=== PATIENT | male | born 1970 | race African-American/Black ===

== ENCOUNTER 2017-07-27 10:13 | Emergency (ER) | payer OTHER ==
[2017-07-27 10:32] VITALS: BMI 25.8
--- NOTE | 2017-07-27 10:57 | PDOC ---
History of Present Illness - General History Source: Patient Exam Limitations: No Limitations - History of Present Illness Initial Comments: 07/27/17 11:53 The patient is a 46 year old male with no significant PMH who presents to the emergency department with chest pain beginning approximately 2-3 weeks ago which acutely worsened yesterday. The patient describes his chest pain as a sharp sensation localized in his left side which has been intermittent over the past 2 weeks but became worse last night.He reports intermittent shooting body aches in the past but notes his chest pain yesterday was worse than those pains. He reports only minimal chest pain at presentation. The patient also notes dyspnea with minimal exertion recently with associated fatigue, such as when going up a small flight of stairs. He denies any recent travel. He denies any history of blood clots. The patient denies headache and dizziness. Denies fever, chills, nausea, vomit, diarrhea and constipation. Denies dysuria, frequency, urgency and hematuria. Allergies: Adhesive, Latex. Past surgical history: Laparoscopic benign tumor removal. Social history: Occasional alcohol use. No reported cigarette or drug use. PCP: Dr. 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 [id number]/ HERNIA RIGHT GROIN) Appendectomy: No Cardiac Surgery: No Cholecystectomy: No Lung Surgery: No Neurologic Surgery: No Orthopedic Surgery: Yes (RIGHT KNEE ARTHROSCOPY 1999) - Immunization History Td Vaccination: Yes Immunization Up to Date: No - Suicide/Smoking/Psychosocial Hx Smoking Status: No Smoking History: Never smoked Have you smoked in the past 12 months: No Number of Cigarettes Smoked Daily: 0 Information on smoking cessation initiated: No Hx Alcohol Use: Yes (Occasionally) Drug/Substance Use Hx: No Substance Use Type: Alcohol Hx Substance Use Treatment: No <Doris Garrido - Last Filed: 07/30/17 08:07> - Past Medical History Allergies/Adverse Reactions: Allergies Allergy/AdvReac Type Severity Reaction Status Date / Time adhesive Allergy Severe Rash Verified 07/27/17 10:23 latex Allergy Severe Rash Verified 07/27/17 10:23 Review of Systems - Review of Systems Able to Perform ROS?: Yes Comments:: 07/27/17 11:53 GENERAL/CONSTITUTIONAL: (+) Intermittent body aches. No fever or chills. No weakness. HEAD, EYES, EARS, NOSE AND THROAT: No change in vision. No ear pain or discharge. No sore throat. CARDIOVASCULAR: (+) Chest pain. (+) Dyspnea with exertion. RESPIRATORY: No cough, wheezing, or hemoptysis. GASTROINTESTINAL: No nausea, vomiting, diarrhea or constipation. GENITOURINARY: No dysuria, frequency, or change in urination. MUSCULOSKELETAL: No joint or muscle swelling or pain. No neck or back pain. SKIN: No rash NEUROLOGIC: No headache, vertigo, loss of consciousness, or change in strength/ sensation. ENDOCRINE: No increased thirst. No abnormal weight change. HEMATOLOGIC/LYMPHATIC: No anemia, easy bleeding, or history of blood clots. ALLERGIC/IMMUNOLOGIC: No hives or skin allergy. <Anibal Hansen - Last Filed: 07/27/17 11:53> *Physical Exam - Vital Signs Last Vital Signs Temp Pulse Resp BP Pulse Ox 98.4 F 71 17 145/84 98 07/27/17 10:24 07/27/17 10:24 07/27/17 10:24 07/27/17 10:24 07/27/17 10:24 <Anibal Hansen - Last Filed: 07/27/17 11:53> - Vital Signs Last Vital Signs Temp Pulse Resp BP Pulse Ox 98.4 F 71 17 145/84 98 07/27/17 10:24 07/27/17 10:24 07/27/17 10:24 07/27/17 10:24 07/27/17 10:24 - Physical Exam Comments: GENERAL: Awake, alert, and fully oriented, in no acute distress HEAD: No signs of trauma EYES: PERRLA, EOMI, sclera anicteric, conjunctiva clear ENT: Auricles normal inspection, hearing grossly normal, nares patent, oropharynx clear without exudates. Moist mucosa NECK: Normal ROM, supple, no lymphadenopathy, JVD, or masses LUNGS: Breath sounds equal, clear to auscultation bilaterally. No wheezes, and no crackles HEART: Regular rate and rhythm, normal S1 and S2, no murmurs, rubs or gallops ABDOMEN: Soft, nontender, normoactive bowel sounds. No guarding, no rebound. No masses EXTREMITIES: Normal range of motion, no edema. No clubbing or cyanosis. No cords, erythema, or tenderness NEUROLOGICAL: Cranial nerves II through XII grossly intact. Normal speech, normal gait SKIN: Warm, Dry, normal turgor, no rashes or lesions noted. <Doris Garrido - Last Filed: 07/30/17 08:07> Heart Score/ECG Review - History History: Slightly suspicious - Electrocardiogram EKG: Normal - Age Age: 45-65 - Risk Factors Risk Factors Heart Score: Yes Smoking History Based on the list above the patient has:: 1-2 risk factors - Troponin Troponin: </= normal limit - Score Heart Score - Total: 2 <Doris Garrido - Last Filed: 07/30/17 08:07> ED Treatment Course - LABORATORY CBC & Chemistry Diagram: 07/27/17 11:00 07/27/17 11:00 - ADDITIONAL ORDERS Additional order review: Laboratory Results 07/27/17 11:00 PT with INR 11.70 INR 1.04 07/27/17 11:00 RBC 4.91 MCV 80.9 MCHC 34.7 RDW 14.7 MPV 7.5 Neutrophils % 41.6 L Lymphocytes % 45.2 H Monocytes % 11.9 H Eosinophils % 0.7 Basophils % 0.6 <Anibal Hansen - Last Filed: 07/27/17 11:53> - LABORATORY CBC & Chemistry Diagram: 07/27/17 11:00 07/27/17 11:00 <Doris Garrido - Last Filed: 07/30/17 08:07> Medical Decision Making - Medical Decision Making Results discussed with patient. Also explained that this does not rule out cardiac disease completely, and that further testing may be recommended. He states that he has to fly to [place] tomorrow for a , will leave "no matter what". He declined to stay in ED while I contacted Dr. Saavedra to discuss results, stating he needed to leave. Echo wnl, EKG wnl, and labs wnl. CTA negative for PE. Encouraged patient to f/u closely. <Doris Garrido - Last Filed: 07/30/17 08:07> *DC/Admit/Observation/Transfer - Attestations Scribe Attestion: 07/27/17 11:53 Documentation prepared by Anibal Hansen, acting as center medical and lab director for Doris Garrido MD. <Anibal Hansen - Last Filed: 07/27/17 11:53> - Discharge Dispostion Admit: No <Doris Garrido - Last Filed: 07/30/17 08:07> Diagnosis at time of Disposition: Chest pain Qualifiers: Chest pain type: unspecified Qualified Code(s): R07.9 - Chest pain, unspecified - Discharge Dispostion Disposition: HOME Condition at time of disposition: Stable - Referrals Referrals: Mark Anthony Saavedra MD [Primary Care Provider] - - Patient Instructions Printed Discharge Instructions: DI for Chest Pain
[2017-07-27 11:16] LABS: BASO % 0.6 % (0-2.0); EOS % 0.7 % (0-4.5); HEMATOCRIT 39.7 % (35.4-49); HEMOGLOBIN 13.8 GM/dL (11.7-16.9); LYMPH % 45.2 % (8-40); MCHC 34.7 g/dl (32.0-35.9); MEAN CELL VOLUME 80.9 fl (80-96); MEAN PLT VOLUME 7.5 fl (7.5-11.1); MONO % 11.9 % (3.8-10.2); NEUT % 41.6 % (42.8-82.8); PLATELET COUNT 214 K/MM3 (134-434); RBC 4.91 M/mm3 (4.00-5.60); RDW 14.7 % (11.9-15.9)
[2017-07-27] MEDS ORDERED: ASPIRIN 81 MG CHEWABLE TABLETS PO ONE (11:28)
[2017-07-27 11:30] LABS: INR 1.04 (0.82-1.09); PROTHROMBIN TIME (PATIENT) 11.7 SEC (9.98-11.88)
[2017-07-27] MEDS ORDERED: ASPIRIN 81 MG CHEWABLE TABLETS ONE (11:53)
[2017-07-27 12:35] LABS: CALCIUM 8.4 mg/dL (8.5-10.1); CHLORIDE 105 mmol/L (98-107); POTASSIUM 4.3 mmol/L (3.5-5.1); SODIUM 140 mmol/L (136-145)
[2017-07-27 12:38] LABS: ALBUMIN 3.7 g/dl (3.4-5.0); ANION GAP 7 (8-16); BLOOD UREA NITROGEN 21 mg/dL (7-18); CO2 28 mmol/L (21-32); CREATININE 1.2 mg/dL (0.7-1.3); GLUCOSE,RANDOM 88 mg/dL (74-106); SGOT/AST 13 U/L (15-37); SGPT/ALT 37 U/L (12-78)
[2017-07-27 12:41] LABS: BILIRUBIN,TOTAL 0.8 mg/dL (0.2-1.0); TOT PROT 7.1 g/dl (6.4-8.2)
[2017-07-27 12:42] LABS: ALK PHOS 83 U/L (45-117)
[2017-07-27 12:56] VITALS: TEMP 98.5
--- NOTE | 2017-07-27 14:49 | EKG ---
Test Reason : Blood Pressure : / mmHG Vent. Rate : 070 BPM Atrial Rate : 070 BPM P-R Int : 182 ms QRS Dur : 090 ms QT Int : 360 ms P-R-T Axes : 038 062 025 degrees QTc Int : 388 ms NORMAL SINUS RHYTHM NORMAL ECG WHEN COMPARED WITH ECG OF 25-JUL-2014 14:26, NO SIGNIFICANT CHANGE WAS FOUND Confirmed by JAMIR PARISH MD ([id number]) on 07/27/2017 2:49:19 PM Referred By: Confirmed By:JAMIR PAIRSH MD
[2017-07-27 15:08] VITALS: BP 129/89; PULSE 68
== END 2017-07-27 15:08 | disposition home or self-care (01) ==
LOC: JER 10:13 → SUPCPDRO 10:13 → JER 15:08
DX: R07.9 Chest pain, unspecified (principal)
CPT/HCPCS: 36415; 71045-TC; 71275-TC; 80053; 82550; 82553; 84484; 85025; 85610; 93005; 93010; 93306-TC; 99282-25

== ENCOUNTER 2019-08-15 12:04 | Day surgery (SDC) | payer OTHER ==
[2019-08-10 14:42] VITALS: BMI 26.5
[2019-08-15] MEDS ORDERED: LIDOCAINE HCL/PF 2% SDV 5ML VIAL ONE (14:00)
[2019-08-15] MEDS ORDERED: PROPOFOL 20 ML ONE ×3 (14:01)
[2019-08-15 14:44] VITALS: TEMP 97.6
[2019-08-15 15:08] VITALS: BP 148/84; PULSE 76
--- NOTE | 2019-08-20 12:32 | PATH ---
Surgical Pathology Report Patient Name: CHELE BOLDEN [facility]. Rec. #: [id number] /Age/Gender: 1970 (Age: 48) / M Account: [id number] Location: [facility] Taken: 08/15/2019 Received: 08/15/2019 Reported: 08/20/2019 Physicians: Tiffanie Abreu M.D. Specimen(s) Received A: SECOND PORTION DUODENUM B: ANTRUM C: GE JUNCTION Clinical History Dyspepsia Postoperative diagnosis: Gastritis Final Diagnosis A. SECOND PORTION OF DUODENUM, BIOPSY: DUODENAL MUCOSA WITH NO PATHOLOGIC FINDINGS. B. GASTRIC ANTRUM, BIOPSY: MILD CHRONIC GASTRITIS. SCANT DUODENAL MUCOSA WITH NO PATHOLOGIC FINDINGS. IMMUNOSTAIN IS NEGATIVE FOR H. PYLORI ORGANISMS. C. GE JUNCTION, BIOPSY: ESOPHAGEAL (SQUAMOUS CELLS (MUCOSA WITH NO PATHOLOGIC FINDINGS. NO COLUMNAR EPITHELIUM/INTESTINAL METAPLASIA IS IDENTIFIED. Electronically Signed [place] Paris M.D. Gross Description A. Received in formalin, labeled "biopsy second portion duodenum" is a silverio, irregular portion of soft tissue measuring 0.4 cm. in greatest dimension. The specimen is submitted in toto in one cassette. B. Received in formalin, labeled "biopsy gastric antrum" are 2 silverio, irregular portions of soft tissue measuring 0.1 and 0.5 cm. in greatest dimension. The specimens are submitted in toto in one cassette. C. Received in formalin, labeled "biopsy GE junction" is a silverio, irregular portion of soft tissue measuring 0.2 cm. in greatest dimension. The specimen is submitted in toto in one cassette. 08/16/2019 [facility]08/16/2019
== END 2019-08-15 15:25 | disposition home or self-care (01) ==
LOC: FASU-ENDO 12:04
PROVIDERS: ATTEND Internal Medicine Gastroenterology
PROC: 0DB68ZX Excision of Stomach, Via Natural or Artificial Opening Endoscopic, Diagnostic (ICD-10-PCS; 2019-08-15)
PROC: 0DB48ZX Excision of Esophagogastric Junction, Via Natural or Artificial Opening Endoscopic, Diagnostic (ICD-10-PCS; 2019-08-15)
PROC: 0DB98ZX Excision of Duodenum, Via Natural or Artificial Opening Endoscopic, Diagnostic (ICD-10-PCS; principal; 2019-08-15 14:12)
DX: K29.50 Unspecified chronic gastritis without bleeding (principal); K21.9 Gastro-esophageal reflux disease without esophagitis; Z85.028 Personal history of other malignant neoplasm of stomach
CPT/HCPCS: 88305-TC; 88342-TC

== ENCOUNTER 2020-05-07 09:39 | Day surgery (SDC) | payer OTHER ==
[2020-05-01 14:50] VITALS: BMI 26.5
[2020-05-07] MEDS ORDERED: PROPOFOL 20 ML ONE ×3 (10:06)
[2020-05-07] MEDS ORDERED: LIDOCAINE HCL/PF 2% SDV 5ML VIAL ONE (10:06)
[2020-05-07 11:02] VITALS: TEMP 97.9
[2020-05-07 11:35] VITALS: BP 110/65; PULSE 72
== END 2020-05-07 11:49 | disposition home or self-care (01) ==
LOC: FASU-ENDO 09:39
PROVIDERS: ATTEND Internal Medicine Gastroenterology
PROC: 0DBN8ZX Excision of Sigmoid Colon, Via Natural or Artificial Opening Endoscopic, Diagnostic (ICD-10-PCS; principal; 2020-05-07 10:40)
DX: D12.7 Benign neoplasm of rectosigmoid junction (principal); K64.8 Other hemorrhoids
CPT/HCPCS: 88305-TC

== ENCOUNTER 2020-08-27 10:07 | Day surgery (SDC) | payer OTHER ==
[2020-08-19 09:45] VITALS: BMI 26.5
[2020-08-27] MEDS ORDERED: LIDOCAINE HCL/PF 2% SDV 5ML VIAL ONE (10:13)
[2020-08-27] MEDS ORDERED: PROPOFOL 20 ML ONE ×3 (10:14)
[2020-08-27 11:50] VITALS: TEMP 98
[2020-08-27 14:43] VITALS: BP 130/78; PULSE 67
== END 2020-08-27 12:45 | disposition home or self-care (01) ==
LOC: FASU-ENDO 10:07
PROVIDERS: ATTEND Internal Medicine Gastroenterology
PROC: 0DBL8ZX Excision of Transverse Colon, Via Natural or Artificial Opening Endoscopic, Diagnostic (ICD-10-PCS; principal; 2020-08-27 11:13)
DX: Z12.11 Encounter for screening for malignant neoplasm of colon (principal); D12.3 Benign neoplasm of transverse colon; K64.0 First degree hemorrhoids; K57.30 Diverticulosis of large intestine without perforation or abscess without bleeding
CPT/HCPCS: 88305-TC

== ENCOUNTER 2022-06-11 10:29 | Day surgery (SDC) | payer OTHER ==
[2022-06-10 10:42] VITALS: BMI 27.9
[2022-06-11] MEDS ORDERED: FENTANYL CITRATE/PF 50 MCG/ML VIAL ONE (11:50)
[2022-06-11] MEDS ORDERED: DEXAMETHASONE SOD PHOSPHATE 10 MG/1 ML VIAL ONE (11:50)
[2022-06-11] MEDS ORDERED: MIDAZOLAM HCL 2 MG/2 ML SINGLE DOSE VIAL ONE (11:50)
[2022-06-11] MEDS ORDERED: ROPIVACAINE HCL 0.5% 30ML VIAL ONE (11:50)
[2022-06-11] MEDS ORDERED: BUPIVACAINE HCL/EPINEPHRINE/PF 30 ML VIAL IJ ONE (11:58)
[2022-06-11] MEDS ORDERED: ceFAZolin SODIUM 1 GM VIAL ONE (12:27)
[2022-06-11] MEDS ORDERED: ONDANSETRON 4 MG/2 ML VIAL ONE ×2 (12:27→15:01)
[2022-06-11] MEDS ORDERED: DEXAMETHASONE SOD PHOSPHATE 4 MG/1 ML VIAL ONE ×2 (12:27→15:01)
[2022-06-11] MEDS ORDERED: PROPOFOL 40 ML ONE (12:30)
[2022-06-11] MEDS ORDERED: PROPOFOL 20 ML ONE ×3 (14:16→15:01)
[2022-06-11] MEDS ORDERED: ONDANSETRON 4 MG/2 ML VIAL IVPUSH PRN (15:51)
[2022-06-11] MEDS ORDERED: PROMETHAZINE HCL 25 MG/1 ML VIAL IVPUSH PRN (15:51)
[2022-06-11] MEDS ORDERED: ACETAMINOPHEN 325 MG TABLET (FP) PO PRN (15:51)
[2022-06-11] MEDS ORDERED: oxyCODONE HCL 5 MG TABLET PO PRN ×2 (15:51)
[2022-06-11 16:51] VITALS: RESP 18
[2022-06-11 17:35] VITALS: BP 121/69; PULSE 65; TEMP 98.1
== END 2022-06-11 17:50 | disposition home or self-care (01) ==
LOC: FASU 10:29
PROVIDERS: ATTEND Orthopaedic Surgery
PROC: 0RCJ4ZZ Extirpation of Matter from Right Shoulder Joint, Percutaneous Endoscopic Approach (ICD-10-PCS; 2022-06-11)
PROC: 0LS34ZZ Reposition Right Upper Arm Tendon, Percutaneous Endoscopic Approach (ICD-10-PCS; principal; 2022-06-11 12:52)
PROC: 0RNJ4ZZ Release Right Shoulder Joint, Percutaneous Endoscopic Approach (ICD-10-PCS; 2022-06-11 12:52)
PROC: 0RBJ4ZZ Excision of Right Shoulder Joint, Percutaneous Endoscopic Approach (ICD-10-PCS; 2022-06-11 12:52)
DX: S46.011D Strain of muscle(s) and tendon(s) of the rotator cuff of right shoulder, subsequent encounter (principal); M75.21 Bicipital tendinitis, right shoulder; M75.51 Bursitis of right shoulder; M65.811 Other synovitis and tenosynovitis, right shoulder; S43.431D Superior glenoid labrum lesion of right shoulder, subsequent encounter; M75.01 Adhesive capsulitis of right shoulder; X58.XXXD Exposure to other specified factors, subsequent encounter
CPT/HCPCS: 88304-TC; 94760; C1713; J1100

== ENCOUNTER 2023-10-11 08:10 | Day surgery (SDC) | payer OTHER ==
[2023-10-05 16:59] VITALS: BMI 28.7
[2023-10-11] MEDS ORDERED: ONDANSETRON 4 MG/2 ML VIAL IVPUSH PRN (08:17)
[2023-10-11] MEDS ORDERED: LACTATED RINGERS SOLUTION 1,000 ML IV SCH (08:30)
[2023-10-11] MEDS ORDERED: ACETAMINOPHEN INJECTION 100 ML IVPB ONE (08:32)
[2023-10-11] MEDS ORDERED: MIDAZOLAM HCL 2 MG/2 ML SINGLE DOSE VIAL ONE (08:32)
[2023-10-11] MEDS ORDERED: ROPIVACAINE HCL 0.5% 30ML VIAL ONE ×2 (08:32→09:39)
[2023-10-11] MEDS ORDERED: DEXAMETHASONE SOD PHOSPHATE/PF 10 MG/ML SDV ONE (08:32)
[2023-10-11] MEDS ORDERED: LIDOCAINE HCL/PF 2% SDV 5ML VIAL ONE (08:33)
[2023-10-11] MEDS ORDERED: PROPOFOL 40 ML ONE (08:34)
[2023-10-11] MEDS ORDERED: ROCURONIUM BROMIDE 50 MG/5 ML SYRINGE ONE (08:35)
[2023-10-11] MEDS ORDERED: BUPIVACAINE HCL/PF 2.5 MG/ML - 30 ML VIAL IJ ONE (08:39)
[2023-10-11] MEDS ORDERED: PROPOFOL 20 ML ONE ×2 (09:14→12:23)
[2023-10-11] MEDS ORDERED: ceFAZolin SODIUM 1 GM VIAL ONE (10:07)
[2023-10-11] MEDS ORDERED: TRANEXAMIC ACID 1000 MG/10 ML VIAL ONE (11:23)
[2023-10-11] MEDS ORDERED: ONDANSETRON 4 MG/2 ML VIAL ONE (11:29)
[2023-10-11] MEDS ORDERED: SUGAMMADEX SODIUM 200 MG/2 ML VIAL ONE (11:29)
[2023-10-11] MEDS ORDERED: FENTANYL CITRATE/PF 50 MCG/ML VIAL ONE ×2 (13:15→13:32)
[2023-10-11] MEDS ORDERED: oxyCODONE HCL 5 MG TABLET ONE (14:59)
[2023-10-11] MEDS: oxyCODONE HCL 5 MG TABLET PO PRN (15:00)
[2023-10-11 15:39] VITALS: BP 140/89; PULSE 74; RESP 17; TEMP 97.1
== END 2023-10-11 15:39 | disposition home or self-care (01) ==
LOC: FASU 08:10
PROVIDERS: ATTEND Orthopaedic Surgery
PROC: 0RNJ4ZZ Release Right Shoulder Joint, Percutaneous Endoscopic Approach (ICD-10-PCS; 2023-10-11)
PROC: 0RCJ4ZZ Extirpation of Matter from Right Shoulder Joint, Percutaneous Endoscopic Approach (ICD-10-PCS; 2023-10-11)
PROC: 0LS34ZZ Reposition Right Upper Arm Tendon, Percutaneous Endoscopic Approach (ICD-10-PCS; principal; 2023-10-11 10:29)
DX: S46.011D Strain of muscle(s) and tendon(s) of the rotator cuff of right shoulder, subsequent encounter (principal); M75.21 Bicipital tendinitis, right shoulder; M75.51 Bursitis of right shoulder; M65.811 Other synovitis and tenosynovitis, right shoulder; S43.431D Superior glenoid labrum lesion of right shoulder, subsequent encounter; X58.XXXD Exposure to other specified factors, subsequent encounter
CPT/HCPCS: 94760; C1713; J0131; Q4125

== ENCOUNTER 2024-05-18 04:25 | Day surgery (SDC) | payer OTHER ==
[2024-05-17 09:35] VITALS: BMI 28.7
[2024-05-18] MEDS ORDERED: ACETAMINOPHEN 500 MG TABLET (FP) PO PRN (08:52)
[2024-05-18 11:35] VITALS: RESP 20
[2024-05-18] MEDS ORDERED: MIDAZOLAM HCL 2 MG/2 ML SINGLE DOSE VIAL ONE ×4 (13:18→14:01)
[2024-05-18] MEDS: LIDOCAINE HCL 1% PRESERVATIVE FREE - 30ML VIAL IJ ONE (13:44)
[2024-05-18] MEDS: LIDOCAINE HCL/PF 2% SDV 5ML VIAL INF ONE (14:15)
[2024-05-18] MEDS ORDERED: ceFAZolin SODIUM 1 GM VIAL ONE (14:41)
[2024-05-18] MEDS: ceFAZolin SODIUM 1 GM VIAL IVPB ONE (14:42)
[2024-05-18] MEDS ORDERED: PROPOFOL 20 ML ONE (15:15)
[2024-05-18 16:55] VITALS: BP 130/85; PULSE 65; TEMP 97.3
== END 2024-05-18 16:48 | disposition home or self-care (01) ==
LOC: JASU-SURG 04:25
PROVIDERS: ATTEND Pain Medicine Pain Medicine
PROC: 015B3ZZ Destruction of Lumbar Nerve, Percutaneous Approach (ICD-10-PCS; principal; 2024-05-18 13:00)
DX: M54.51 Vertebrogenic low back pain (principal)
CPT/HCPCS: 64628; C2618; 76000-TC-FY

== ENCOUNTER 2024-07-12 04:12 | Day surgery (SDC) | payer OTHER ==
[2024-07-10 12:41] VITALS: BMI 28.7
[2024-07-12] MEDS ORDERED: BUPIVACAINE HCL/PF 0.75% 10 ML VIAL ONE (07:11)
[2024-07-12] MEDS ORDERED: LIDOCAINE HCL/PF 1% SDV 5ML VIAL ONE (07:12)
[2024-07-12 08:09] VITALS: RESP 18; TEMP 98.4
[2024-07-12] MEDS ORDERED: ACETAMINOPHEN 500 MG TABLET (FP) PO PRN (08:46)
[2024-07-12] MEDS: LIDOCAINE HCL 1% PRESERVATIVE FREE - 30ML VIAL IJ ONE ×2 (09:17)
[2024-07-12] MEDS: BUPIVACAINE HCL/PF 0.75% 10 ML VIAL NR ONE ×2 (09:17)
[2024-07-12 12:34] VITALS: BP 140/98; PULSE 81
== END 2024-07-12 09:45 | disposition home or self-care (01) ==
LOC: JASU-SURG 04:12
PROVIDERS: ATTEND Pain Medicine Pain Medicine
PROC: 3E0T33Z Introduction of Anti-inflammatory into Peripheral Nerves and Plexi, Percutaneous Approach (ICD-10-PCS; 2024-07-12)
PROC: 3E0T3BZ Introduction of Anesthetic Agent into Peripheral Nerves and Plexi, Percutaneous Approach (ICD-10-PCS; principal; 2024-07-12 09:15)
DX: M47.816 Spondylosis without myelopathy or radiculopathy, lumbar region (principal)
CPT/HCPCS: 76000-TC-FY

== ENCOUNTER 2024-08-23 07:21 | Day surgery (SDC) | payer OTHER ==
[2024-08-23] MEDS ORDERED: ACETAMINOPHEN 500 MG TABLET (FP) PO PRN (09:21)
[2024-08-23 14:00] VITALS: RESP 18; TEMP 97.8
[2024-08-23 17:37] VITALS: BP 128/88; PULSE 62
== END 2024-08-23 15:15 | disposition home or self-care (01) ==
LOC: JASU-SURG 07:21
PROVIDERS: ATTEND Pain Medicine Pain Medicine
PROC: 3E0T3BZ Introduction of Anesthetic Agent into Peripheral Nerves and Plexi, Percutaneous Approach (ICD-10-PCS; principal; 2024-08-23 14:37)
DX: M47.816 Spondylosis without myelopathy or radiculopathy, lumbar region (principal)
CPT/HCPCS: 76000-TC-FY

== ENCOUNTER 2024-09-20 06:42 | Day surgery (SDC) | payer OTHER ==
[2024-09-20] MEDS ORDERED: ACETAMINOPHEN 500 MG TABLET (FP) ONE (11:07)
[2024-09-20] MEDS: ACETAMINOPHEN 500 MG TABLET (FP) PO PRN (11:10)
[2024-09-20 11:15] VITALS: PULSE 68
[2024-09-20 11:20] VITALS: BP 130/89; RESP 18; TEMP 98
== END 2024-09-20 11:35 | disposition home or self-care (01) ==
LOC: JASU-SURG 06:42
PROVIDERS: ATTEND Pain Medicine Pain Medicine
PROC: 015B3ZZ Destruction of Lumbar Nerve, Percutaneous Approach (ICD-10-PCS; principal; 2024-09-20 10:45)
DX: M47.816 Spondylosis without myelopathy or radiculopathy, lumbar region (principal)
CPT/HCPCS: 76000-TC-FY

== ENCOUNTER 2024-12-31 00:07 | Emergency (ER) | payer OTHER ==
[2024-12-31 00:21] VITALS: BP 130/77; PULSE 83; RESP 18; TEMP 98.4; BMI 30.1
[2024-12-31] MEDS ORDERED: KETOROLAC TROMETHAMINE 30 MG/1 ML VIAL ONE (01:28)
[2024-12-31] MEDS ORDERED: METHOCARBAMOL 500 MG TABLET ONE (01:28)
[2024-12-31] MEDS ORDERED: LIDOCAINE 5% TOPICAL PATCH ONE (01:28)
[2024-12-31] MEDS: METHOCARBAMOL 500 MG TABLET PO ONE (01:39)
[2024-12-31] MEDS: KETOROLAC TROMETHAMINE 30 MG/1 ML VIAL IM ONE (01:39)
[2024-12-31] MEDS: LIDOCAINE 5% TOPICAL PATCH TP ONE (01:40)
== END 2024-12-31 02:06 | disposition home or self-care (01) ==
LOC: JER 00:07
PROC: 3E0233Z Introduction of Anti-inflammatory into Muscle, Percutaneous Approach (ICD-10-PCS; principal; 2024-12-31)
DX: M62.838 Other muscle spasm (principal); M54.2 Cervicalgia; M54.9 Dorsalgia, unspecified
CPT/HCPCS: 36415; 86803; 99284-25

== ENCOUNTER 2025-02-21 06:13 | Day surgery (SDC) | payer OTHER ==
[2025-02-21] MEDS: LIDOCAINE HCL 1% PRESERVATIVE FREE - 30ML VIAL IJ ONE
[2025-02-21] MEDS: IOHEXOL 180 MG/1 ML ML IJ ONE
[2025-02-21] MEDS ORDERED: LIDOCAINE HCL/PF 2% SDV 5ML VIAL ONE (07:07)
[2025-02-21] MEDS ORDERED: BUPIVACAINE HCL/PF 0.25% (2.5MG/ML) 10 ML VIAL ONE (07:07)
[2025-02-21] MEDS ORDERED: DEXAMETHASONE SOD PHOSPHATE 10 MG/1 ML VIAL ONE (07:08)
[2025-02-21] MEDS ORDERED: BUPIVACAINE HCL/PF 0.5% (5MG/ML) 10 ML VIAL ONE (07:08)
[2025-02-21] MEDS ORDERED: LIDOCAINE HCL/PF 1% SDV 5ML VIAL ONE ×2 (07:08→07:25)
[2025-02-21] MEDS ORDERED: TRIAMCINOLONE ACET 40MG/1ML VIAL ONE (07:08)
[2025-02-21] MEDS ORDERED: BUPIVACAINE HCL/PF 0.75% 10 ML VIAL ONE (07:25)
[2025-02-21] MEDS: BUPIVACAINE HCL/PF 0.5% (5 MG/ML) 30 ML VIAL IJ ONE ×2 (08:40)
[2025-02-21 09:53] VITALS: BP 134/90; PULSE 67; RESP 20; TEMP 97.7
== END 2025-02-21 09:15 | disposition home or self-care (01) ==
LOC: JASU-SURG 06:13
PROVIDERS: ATTEND Pain Medicine Pain Medicine
PROC: 3E0T33Z Introduction of Anti-inflammatory into Peripheral Nerves and Plexi, Percutaneous Approach (ICD-10-PCS; 2025-02-21)
PROC: 3E0T3BZ Introduction of Anesthetic Agent into Peripheral Nerves and Plexi, Percutaneous Approach (ICD-10-PCS; principal; 2025-02-21 08:30)
DX: M47.812 Spondylosis without myelopathy or radiculopathy, cervical region (principal)
CPT/HCPCS: 76000-TC-FY; J1100

== ENCOUNTER 2025-04-26 06:22 | Day surgery (SDC) | payer OTHER ==
[2025-04-26] MEDS ORDERED: DEXAMETHASONE SOD PHOSPHATE 10 MG/1 ML VIAL ONE (07:24)
[2025-04-26] MEDS ORDERED: LIDOCAINE HCL/PF 1% SDV 5ML VIAL ONE (07:24)
[2025-04-26] MEDS: LIDOCAINE HCL/PF 2% SDV 5ML VIAL INF ONE ×2 (09:33)
[2025-04-26] MEDS: LIDOCAINE HCL 1% PRESERVATIVE FREE - 30ML VIAL IJ ONE ×2 (09:33)
[2025-04-26] MEDS: BUPIVACAINE HCL/PF 0.5% (5MG/ML) 10 ML VIAL IJ ONE ×3 (09:33→09:34)
[2025-04-26] MEDS: DEXAMETHASONE SOD PHOSPHATE 10 MG/1 ML VIAL IVPUSH ONE ×3 (09:33→09:36)
[2025-04-26 10:10] VITALS: BP 139/81; PULSE 62; RESP 14; TEMP 97.6
[2025-04-26] MEDS: ACETAMINOPHEN 500 MG TABLET (FP) PO PRN (10:30)
== END 2025-04-26 10:30 | disposition home or self-care (01) ==
LOC: JASU-SURG 06:22
PROVIDERS: ATTEND Pain Medicine Pain Medicine
PROC: 015B3ZZ Destruction of Lumbar Nerve, Percutaneous Approach (ICD-10-PCS; principal; 2025-04-26 09:00)
DX: M47.812 Spondylosis without myelopathy or radiculopathy, cervical region (principal)
CPT/HCPCS: 76000-TC-FY; J1100